=== PATIENT | female | born 1980 ===

== ENCOUNTER 2024-07-21 13:31 | Outpatient (REF) | payer OTHER, SELFPAY ==
[2024-07-21 16:30] LABS: ALT 16 U/L (14-59); AST 12 U/L (15-37); Albumin 4.1 g/dL (3.4-5.0); Alkaline Phosphatase 70 U/L (46-116); Anion Gap 10.4 mmol/L (3-11); BUN 14 mg/dL (7-18); Bilirubin, Total 0.36 mg/dL (0.2-1.0); CO2 22.6 mmol/L (21.0-32.0); CREATININE 0.8 mg/dL (0.55-1.02); Calcium 9.5 mg/dL (8.5-10.1); Calculated LDL 130 mg/dL (<100); Chloride 107 mmol/L (98-107); Cholesterol 208 mg/dL (<200); Estimated GFR 94.28 (mL/min/1.73m2); Glucose 103 mg/dL (74-106); HDL Cholesterol 31 mg/dL (>or=50); Potassium 4.4 mmol/L (3.5-5.1); Sodium 140 mmol/L (136-145); Total Protein 7.1 g/dL (6.4-8.2); Triglyceride 236 mg/dL (<150); Vitamin D 25 Total 25.8 ng/mL (30-100)
[2024-07-21 17:28] LABS: Hemoglobin A1C 5.6 % (<5.7)
== END 2024-07-21 13:32 | disposition home or self-care (01) ==
LOC: NCHCN 13:31
PROVIDERS: Visit Provider Nurse Practitioner Family
DX: Z00.00 Encounter for general adult medical examination without abnormal findings (principal); Z82.49 Family history of ischemic heart disease and other diseases of the circulatory system; E55.9 Vitamin D deficiency, unspecified
CPT/HCPCS: 80053; 80061; 82306; 83036

== ENCOUNTER 2025-01-26 15:11 | Outpatient (REF) | payer OTHER, SELFPAY ==
[2025-01-26 15:10] LABS: Abs Immature Grans 0.04 10^3/uL (0.0-0.06); HCT 38.0 % (36.0-46.0); HGB 13.0 g/dL (11.2-15.7); Immature Grans % 0.3 %; MCH 31.6 pg (27.0-33.0); MCHC 34.2 % (32.0-36.0); MCV 93 fL (80-95); MPV 9.6 fL (8.0-11.0); Platelet Count 355 10^3/uL (130-400); RBC 4.11 10^6/uL (3.93-5.22); RDW 11.9 % (11.7-14.6); RDW-SD 40.2 fL; WBC 12.11 10^3/uL (4.4-10.8)
[2025-01-26 15:50] LABS: TSH (W/Ref FT4) 1.40 uIU/mL (0.36-3.74); Vitamin D 25 Total 48 ng/mL (30-100)
== END 2025-01-26 15:12 | disposition home or self-care (01) ==
LOC: NCHCN 15:11
PROVIDERS: Visit Provider Nurse Practitioner Family
DX: E04.9 Nontoxic goiter, unspecified (principal); E55.9 Vitamin D deficiency, unspecified; R53.81 Other malaise
CPT/HCPCS: 82306; 84443; 85025

== ENCOUNTER 2025-02-26 09:48 | Outpatient (REF) | payer OTHER, SELFPAY ==
--- NOTE | 2025-02-26 09:44 | SKI_PTH ---
PATIENT: Hattie Hurtado LOC: [facility] U#:[id number] AGE/SX: 44/F ROOM: RE02/26/[address]: Isabel Cassidy : 1980 BED: DIS: 02/26/2025 SPEC #: [id number] RECD: 02/26/25 12:32 STATUS: ANNA RELeeann #: [id number] AARON: 02/26/25 09:[address]: Isabel Cassidy DEPT: Surgical Specimen RECD BY: Marcelina Looney ENTERED: 02/26/25 12:32 SP TYPE: JUAN ULLOA DR: Oneyda Walker Tissues: 1 - SKIN CYST/TAG/DEBRIDEMENT Procedures: GROSS AND MICRO LEVEL 3 Comments: [id number]
== END 2025-02-26 09:49 | disposition home or self-care (01) ==
LOC: LBN 09:48
PROVIDERS: PCP Nurse Practitioner Family; Visit Provider Student in an Organized Health Care Education/Training Program
DX: L72.9 Follicular cyst of the skin and subcutaneous tissue, unspecified (principal)
CPT/HCPCS: 88304